=== PATIENT | male | born 1990 | race Caucasian/White ===

== ENCOUNTER 2023-04-06 06:37 | Day surgery (SDC) | payer OTHER ==
[~2023-04-06] VITALS: Ht 167.6 cm; Wt 85.3 kg
[~2023-04-06 06:37] MED LIST: IBUP200C89 PO; OMEG10002 PO; PANT40TA29 PO; TRANEXAMIC ACID 100 MG/ML 10ML VIAL IV ONE; VITMTA PO; ceFAZolin SOD 2 GM in IV 1 EA IV ONE
[2023-04-06] MEDS ORDERED: VANCOMYCIN 1000MG/20ML VIAL As Ordered ONE (06:41)
[2023-04-06] MEDS ORDERED: TRANEXAMIC ACID 100 MG/ML 10ML VIAL As Ordered ONE ×2 (06:41→10:50)
[2023-04-06] MEDS ORDERED: EPINEPHrine INJ 1 MG/ML 1ML AMP As Ordered ONE (06:42)
[2023-04-06] MEDS ORDERED: LIDOCAINE 1% SDV 5ML VIAL PN ONE (08:15)
[2023-04-06] MEDS ORDERED: MIDAZOLAM INJ 2MG/2ML VIAL IV PRN (08:15)
[2023-04-06] MEDS ORDERED: fentaNYL 100 MCG/2 ML INJECTION IV PRN ×2 (08:15→13:10)
[2023-04-06] MEDS ORDERED: ROPIvacaine 0.5% 30ML VIAL PN ONE (08:15)
[2023-04-06] MEDS ORDERED: LR 1,000 ML IV SCH ×2 (08:20→13:10)
[2023-04-06] MEDS ORDERED: ONDANSETRON 4MG 2ML VIAL As Ordered ONE (09:47)
[2023-04-06] MEDS ORDERED: ROCURONIUM BROMIDE 50MG/5ML VIAL As Ordered ONE ×2 (09:47→10:42)
[2023-04-06] MEDS ORDERED: PHENYLephrine 500MCG 5ML (100MCG/ML) SYRINGE As Ordered ONE (09:47)
[2023-04-06] MEDS ORDERED: MIDAZOLAM INJ 2MG/2ML VIAL As Ordered ONE (09:47)
[2023-04-06] MEDS ORDERED: ACETAMINOPHEN 1000MG 100ML IV BAG As Ordered ONE (09:47)
[2023-04-06] MEDS ORDERED: propofoL 200 MG/20 ML VIAL As Ordered ONE ×3 (09:47→13:06)
[2023-04-06] MEDS ORDERED: fentaNYL 100 MCG/2 ML INJECTION As Ordered ONE (09:47)
[2023-04-06] MEDS ORDERED: LACRILUBE (AKWA TEARS) OPHTH OINT 3.5GM As Ordered ONE (09:47)
[2023-04-06] MEDS ORDERED: LIDOCAINE 2% 100MG/5ML SDV (FOR ANES.) As Ordered ONE (09:47)
[2023-04-06] MEDS ORDERED: SUGAMMADEX SODIUM 500 MG/5 ML VIAL (BRIDION) As Ordered ONE (09:47)
[2023-04-06] MEDS ORDERED: KETOROLAC 60MG 2ML VIAL As Ordered ONE (09:53)
[2023-04-06] MEDS ORDERED: ePHEDrine SULFATE 25 MG/5 ML(5MG/ML) SYRINGE As Ordered ONE (09:56)
[2023-04-06] MEDS ORDERED: EPINEPHrine 1MG/ML INJ 30ML MD-VIAL As Ordered ONE (10:29)
[2023-04-06] MEDS ORDERED: ONDANSETRON 4MG 2ML VIAL IV PRN (13:10)
[2023-04-06] MEDS ORDERED: HYDROMORPHONE HCL 0.5 MG/ 0.5 ML SYRINGE IV PRN (13:10)
[2023-04-06] MEDS ORDERED: oxyCODONE 5MG TAB PO PRN (13:10)
[2023-04-06 14:20] VITALS: BP 140/78; TEMP 97.1; O2SAT 96
== END 2023-04-06 15:15 | disposition home or self-care (01) ==
LOC: M SDC 06:37
PROVIDERS: ATTEND Orthopaedic Surgery
DX: S43.122A Dislocation of left acromioclavicular joint, 100%-200% displacement, initial encounter (principal); W19.XXXA Unspecified fall, initial encounter; Y93.02 Activity, running; Y92.9 Unspecified place or not applicable; Y99.1 Military activity
CPT/HCPCS: 29999; 76000; C1713; C1762; J0131; J0171; J1100; J1885; J2250; J2371; J2405; J2795; J3010; J3370